=== PATIENT | female | born 1970 | race Caucasian/White ===

== ENCOUNTER → 2018-04-24 14:00 | Outpatient (CLI) | payer OTHER, SELFPAY ==
[2018-04-28 11:06] LABS: HPV Reflexed? NOT INDICATED
== END ==
PROVIDERS: Visit Provider Obstetrics & Gynecology
DX: Z12.4 Encounter for screening for malignant neoplasm of cervix (principal)
CPT/HCPCS: 87624; 88175; G0145

== ENCOUNTER → 2020-05-12 | Outpatient (CLI) | payer OTHER, SELFPAY ==
[2020-05-18 01:44] LABS: HPV Reflexed? NOT INDICATED
== END | disposition home or self-care (01) ==
LOC: LABSPEC 05-13 09:08
PROVIDERS: Visit Provider Obstetrics & Gynecology
DX: Z12.4 Encounter for screening for malignant neoplasm of cervix (principal)
CPT/HCPCS: 88175; G0145

== ENCOUNTER → 2021-05-27 | Outpatient (CLI) | payer OTHER, SELFPAY ==
--- NOTE | 2021-05-27 | EMB_PTH ---
PATIENT: DANA CONWAY LOC: [facility] U#:[id number] AGE/SX: 50/F ROOM: RE05/27/[address]: Dr. Eligio Petit MD : 1970 BED: DIS: 05/27/2021 SPEC #: [id number] RECD: 05/27/21 14:26 STATUS: WILLIAM SADAF #: [id number] HILDA: 05/27/21 00:[address]: Eligio Petit DEPT: SURGICAL PATHOLOGY RECD BY: Nikolas Schneider Tissues: Endometrium, NOS Procedures: Surgery Specimen Level IV HEADER OPERATION: Endometrial biopsy PRE-OP DIAGNOSIS: N92.6, N92.0 TISSUE SUBMITTED: Endometrial biopsy MICROSCOPIC DIAGNOSIS Endometrium, biopsy: Transitional endometrium with stromal and focal glandular breakdown. AM:delvin 05/31/2021 MICROSCOPIC DESCRIPTION Slides are reviewed. GROSS DESCRIPTION Received in fixative is one container labeled with the patient's name and designated endometrial biopsy. The specimen consists of multiple irregular fragments of red-arnold soft tissue that in aggregate measure 1.2 x 1 x <0.1 cm. The specimen is totally submitted in one cassette. / AM:delvin 05/28/21 TC:5 [facility]: [id number]
[2021-06-01 21:32] LABS: HPV Reflexed? NOT INDICATED
== END | disposition home or self-care (01) ==
LOC: LABSPEC 14:13
PROVIDERS: Visit Provider Obstetrics & Gynecology
DX: N92.0 Excessive and frequent menstruation with regular cycle (principal); N92.6 Irregular menstruation, unspecified; Z12.4 Encounter for screening for malignant neoplasm of cervix
CPT/HCPCS: 88175; 88305; G0145

== ENCOUNTER 2021-08-16 08:57 | Day surgery (SDC) | payer OTHER, SELFPAY ==
[2021-08-11 16:08] LABS: Hematocrit 43.3 % (37-47); Hemoglobin 14.2 g/dL (12.0-15.0); Mean Corp Hgb Conc 32.8 g/dL (32-36); Mean Corpuscular Hgb 30.3 pg (27.0-32.0); Mean Corpuscular Volume 92.3 fL (81-99); Mean Platelet Vol. 10.8 fl (6.2-12.0); Platelet Count 290 K/mm3 (150-450); RBC Distribution Width SD 44.1 fl (35.1-43.9); Red Blood Count 4.69 M/mm3 (4.2-5.4); White Blood Count 6.6 K/mm3 (4.4-11.0)
[2021-08-11 16:27] LABS: Prothrombin Time (Protime)PT. 12.4 SECONDS (11.7-14.9)
[2021-08-11 16:28] LABS: Partial Thromboplast Time 24.7 Seconds (24.1-36.2)
[2021-08-11 16:30] LABS: Thyroid Stim Hormone (TSH) 1.58 uIU/mL (0.358-3.74)
[2021-08-11 17:40] LABS: Internal QC Validated? YES +Cl - CLEAR BKGD; Pregnancy, Serum, hCG Quali. NEGATIVE Negative
--- NOTE | 2021-08-15 15:29 | PCM.HP.BLA ---
History and Physical Date of Admission: 08/16/21 Surgical History and Physical Sissy Venegas, a 50 year old female 2 0 1 0 2, presents for HTA, Hysteroscopy and D and C on August 16, 2021. -- Menorrhagia -- Heavy irregular menses which began years ago. It occurs intermittantly. Severity is moderate and worsening. Additional comments are: Pelvic u/s shows no polyps or fibroids except subserosal. EMBx benign. MEDICATIONS HISTORY: Patient is also takin. No Meds ALLERGIES: NKA Infections - Chicken pox Illnesses - no serious past illnesses Accidents - no injuries of consequence Hospitalizations - Childbirth and see surgery by [facility]; Review of Systems: GENERAL - Denies fever, or chills SKIN - Denies skin changes EYES - Denies visual changes EARS - Denies difficulty hearing NOSE - Denies nasal congestion or bleeding MOUTH - Denies sore throat or difficulty swallowing NECK - Denies pain or swelling RESPIRATORY - Denies shortness of breath or wheezing CARDIOVASCULAR - Denies palpitations or chest pain GASTROINTESTINAL - Denies nausea, vomiting, diarrhea, constipation GENITOURINARY - Denies dysuria, frequency of urination, incontinence of urine MUSCULOSKELETAL - Denies joint or muscle pain NEUROLOGICAL - Denies localized numbness or weakness PSYCHIATRIC - Denies depression or anxiety ENDOCRINE - Denies heat or cold intolerance, weight loss or gain HEMATO-IMMUNOLOGIC - Denies excesive bleeding with cuts SOCIAL HISTORY: Alcohol Use - drinks occasionally Smoking - denies use Diet - balanced Diet and no particular diet Lifestyle - moderate stress lifestyle and Exercise - very active Seat Belt Use - always 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 Maternal Grandmother: Ovarian cancer. MENSTRUAL HISTORY: LMP Known?- DefiniteAmount/Duration - 7 to 10 days, Regularity - Irregular, Frequency - 2 to 6 weeks days, LMP - 07/18/21, Age Onset Menarche - 14 PAST PREGNANCIES: Total Pregnancies - 3; Full Term Pregnancies - 2; Premature - 0; Abortions, Induced - 0; Abortions, Spontaneous - 1; Ectopics - 0; Multiple Births - 0; Living Children - 2 SURGICAL HISTORY: , D and C PHYSICAL EXAM BP- 100/68 Sitting, Right arm, regular cuff Weight- 130.8 lbs Height- 63 inch BMI:23.2 CONSTITUTIONAL - NAD, well nourished, and well developed SKIN - No rash, lesions, or ulcers HEENT - Normocephalic, PERRLA, EOMI NECK - No nodes, no nuchal rigidity and thyroid normal size and texture LYMPH NODES - Palpation of lymph nodes in neck and groins within normal limits LUNGS - CTA x2 without wheezes, crackles or rales CARDIAC - Regular rate and rhythm without rubs, murmurs, or gallops BREAST - No dominant masses, no tenderness, no axillary adenopathy, no nipple discharge, no skin changes ABDOMEN - Without hepatosplenomegaly, distention, masses, rebound, or guarding; normal bowel sounds; no hernias EXTREMITIES - No edema or calf tenderness NEUROLOGICAL - Cranial nerves II-XII grossly intact PSYCHIATRIC - A and O to time, place, person, mood and affect External Genitial Vagina - non-tender without lesions Urethra/Urethral Meatus - non-tender Bladder - non-tender Vagina - vaginal menjivar are pink and moist without loss of rugae and no evidence of atropy Cervix - without cervical motion tenderness and has normal size and features without evident lesions Uterus - 5-6 cm in size, mobile and nontender Adnexa - clear without massess or tenderness ASSESSMENT/PLAN: Premenopausal Menorrhagia Discussed options for treatment and pt desires proceeding with HTA, D and C and H/S. Discussed RBAs and all questons answered.
[2021-08-16] VITALS (9 sets, daily range): BP systolic 118–155; BP diastolic 42–88; PULSE 40–70; RESP 16–18; TEMP 36–36.2; O2SAT 99–100; BMI 22.6
[2021-08-16] MEDS: Lactated Ringers 1,000 ML 15 ML IV (09:37)
[2021-08-16 09:39] LABS: Internal QC Validated? YES +Cl - CLEAR BKGD; Pregnancy, Urine Negative Negative
--- NOTE | 2021-08-16 11:06 | PCM.OPRPT ---
Report of Operation Date of Procedure: 08/16/21 Pre-Operative Diagnosis: Menorrhagia Post-Operative Diagnosis: Menorrhagia Surgery/Procedure Performed:: Diagnostic Hysteroscopy, Dilation and Curettage, Hydrothermal Ablation Description of Surgical Findings:: 10 cm endometrial cavity without polyps or fibroids present. Surgeon: Eligio Petit Type of Anesthesia: General (LMA) Anesthesiologist: Gene Pham Specimen's removed: Endometrial curettings Estimated Blood Loss (mL): Minimal Fluids Replaced: Crystalloid Description of Procedure: Surgeon: Eligio Petit MD, FACOG Indication: This is a 50 year old patient who has been having problems with extremely heavy menses. Conservative measures have not been helpful. Endometrial sampling was benign and pelvic ultrasound showed that ablation may be helpful. Pt has been counseled regarding the risks, benefits and alternatives of this procedure and all questions answered. She understands that only about half of patients will have amenorrhea after this procedure. Procedure: Patient taken to the operating room where after induction of general anesthesia the patient was prepped and draped in the usual sterile fashion. Bladder was drained of urine with a catheter. Anterior cervix grasped and cervix was dilated to about 17 Croatian size. Hysteroscopic hydrothermal ablation (HTA) unit was place in the cervix and the above findings were noted. HTA unit was removed and the uterus was gently curretted removing all contents. An HTA ablation cycle was then carried out at about 90 degrees Centigrade for 10 minutes with virtually no fluid loss during the procedure. After an appropriate cool down the HTA unit was removed with minimal bleeding noted. The patient tolerated the procedure well and was taken to the recovery room in satisfactory condition. Sponge, instruments and needle counts were all correct. There were no apparent complications of the surgery. Ancef 2 gms IV was given prior to the procedure. Estimated Blood Loss: Minimal Specimen to Pathology: Endometrial Curettings Grafts/Implants Used: None Complications None Admit VTE Documentation VTE Present on Admission: Yes VTE Mechan Device Prophylaxis: SCD's
--- NOTE | 2021-08-16 11:09 | PCM.DC ---
Discharge Instructions Diet Discharge Diet: No restrictions Activity Discharge Activity: Return to Normal Activity, May Shower and May Take a Tub Bath May resume sexual activity in: 3 weeks Additional Activity Instructions:: Nothing in the vagina for 3-4 weeks please. Use Ibuprophen 800 mg orally every 8 hours as needed for pain. Can also add Tylenol 1000 mg every 8 hours if needed for pain. If Ibuprophen and Tylenol are not effective then use the Oxycodone but keep in mind it can cause serious constipation issues. Drink lots of water. Call if bleeding more than a pad per hour. Clear to brownish discharge will last for about 3 weeks. Dressing / Incision Call your doctor if you observe: Fever of 101 or Higher, Inability to urinate, Inability to have a bowel movement and Using more than 1 pad per hour Follow Up Care Please Follow Up With: Eligio Petit MD When: 3 to 4 weeks Test Results: Test results from this visit will be discussed in further detail at your follow-up appointment, if applicable. Discharge Plan Admission Primary Reason for Your Visit: Endometrial Ablation Attending Provider: Eligio Petit Primary Care Provider: Trey Conteh Discharge Orders/Prescriptions Prescriptions: New oxycodone 5 mg capsule 5 mg PO Q6H PRN (Reason: pain (scale score 7-10)) 7 Days Qty: 7 RF: 0 Referrals / Follow Up: Trey Conteh MD [Primary Care Provider] - Disposition Disposition (needs filled in before D/C Order can be placed): Home, Self Care
[2021-08-16] MEDS: Cefazolin 2 GM in 0.9% Normal Saline 100 ML IV (11:10)
[2021-08-16] MEDS: oxyCODONE 5 MG Tablet PO (13:45)
--- NOTE | 2021-08-17 | EMB_PTH ---
PATIENT: DANA CONWAY LOC: [facility] U#:[id number] AGE/SX: 50/F ROOM: RE08/16/[address]: Dr. Eligio Petit MD : 1970 BED: DIS: 08/16/2021 SPEC #: [id number] RECD: 08/17/21 10:59 STATUS: WILLIAM RECindy #: [id number] HILDA: 08/17/21 00:[address]: Eligio Petit DEPT: SURGICAL PATHOLOGY RECD BY: Nikolas Schneider ENTERED: 08/17/21 10:59 SP TYPE: ENDOM BX/C OTHR DR: Dr. Trey Conteh MD Tissues: Endometrium, NOS Procedures: Surgery Specimen Level IV HEADER OPERATION: Hysteroscopy, D & C hydroablation PRE-OP DIAGNOSIS: Premenopausal menorrhagia TISSUE SUBMITTED: Endometrial curettings MICROSCOPIC DIAGNOSIS Endometrial curettings: Weakly proliferative endometrium. AM:delvin 08/18/2021 MICROSCOPIC DESCRIPTION Slides are reviewed. GROSS DESCRIPTION Received in fixative is one container labeled with the patient's name and designated endometrial curettings. The specimen consists of multiple fragments of hemorrhagic soft tissue that in aggregate measure 0.5 x 0.5 x 0.1 cm. The specimen is totally submitted in one cassette. / SJ:rg 08/17/2021 TC:4 CPT: 95450
== END 2021-08-16 23:59 | disposition home or self-care (01) ==
LOC: SDC 09:01 → AC 09:03
PROVIDERS: Anesthesiology; PCP Family Medicine; Referring Provider Obstetrics & Gynecology; Visit Provider Obstetrics & Gynecology
PROC: 0U5B8ZZ Destruction of Endometrium, Via Natural or Artificial Opening Endoscopic (ICD-10-PCS; CPT 58563; principal; 2021-08-16 10:30)
DX: N92.4 Excessive bleeding in the premenopausal period (principal)
CPT/HCPCS: 00952; 58563; 36415; 81025; 84443; 84703; 85027; 85610; 85730; 86850; 86900; 86901; 88305; J7120; J2405

== ENCOUNTER → 2024-08-03 | Outpatient (CLI) | payer OTHER, SELFPAY ==
[2024-08-03 09:32] LABS: AST(SGOT) 20 U/L (15-37); Alanine Aminotransfer ALT/SGPT 19 U/L (13-56); Albumin, Serum 3.6 g/dL (3.2-5.0); Alkaline Phosphatase 105 U/L (45-117); Anion Gap 6 (5-15); BUN 19 mg/dL (7-18); Calcium,Total 9.2 mg/dL (8.5-10.1); Chloride 110 mmol/L (98-107); Cholesterol 215 mg/dL (200); Creatinine, Serum 0.86 mg/dL (0.55-1.02); EST Glomerular Filtration Rate 73 mL/min (>60); Est Glom Filt Rate - Afr Amer 88 mL/min (>60); Globulin 3.5 g/dL (2.2-4.2); Glucose 100 mg/dL (74-106); High Density Lipoprotein 89 mg/dL; Potassium 4.1 mmol/L (3.5-5.1); Protein, Total 7.1 g/dL (6.4-8.2); Sodium Level 142 mmol/L (136-145); Triglycerides 56 mg/dL; Very Low Density Lipoprotein 11 mg/dL (5-40)
== END | disposition home or self-care (01) ==
LOC: LAB 08:26
PROVIDERS: PCP Family Medicine; Referring Provider Family Medicine; Visit Provider Family Medicine
DX: Z13.1 Encounter for screening for diabetes mellitus (principal); Z13.220 Encounter for screening for lipoid disorders
CPT/HCPCS: 36415; 80053; 80061